=== PATIENT | female | born 1995 | race Caucasian/White ===

== ENCOUNTER 2023-01-15 11:28 | Outpatient (CLI) | payer BC, MEDICAID, SELFPAY | END 2023-01-15 11:29 | disposition home or self-care (01) | LOC: ANHSURGERY 11:35 | PROVIDERS: PCP Pediatrics; Visit Provider Surgery | DX: K42.9 Umbilical hernia without obstruction or gangrene (principal) | CPT/HCPCS: 36415; 86850; 86900; 86901 ==

== ENCOUNTER 2023-01-22 00:50 | Day surgery (SDC) | payer BC, MEDICAID, SELFPAY ==
[2023-01-13 13:41] VITALS: BMI 43.0
--- NOTE | 2023-01-13 13:48 | PC.NURSE ---
Report to the Outpatient Waiting Room, entrance under the green pavilion located off [facility], at time _0800_ on date _[id number]_. Planned Procedure Time: _1000_. Time changes happen often and if your time is changed the preop area will call you the afternoon before. - You and your visitor will be asked to self-screen and do not enter if you have any COVID symptoms. - A mask is optional within the hospital at this time. Patients may have clear liquids (water, carbonated beverages, clear teas, apple juice) until 3 hours prior to surgery with a maximum of 20 ounces. - No food from midnight until time of surgery Take the following medications with a SIP of water the morning of surgery: __Escitalopram, Topiramate DO NOT STOP ANY OF YOUR OTHER PRESCRIPTION MEDICATIONS PRIOR TO SURGERY ?EXCEPT THE FOLLOWING Medications to discontinue per physician __Vitamin D3, and Vitamin K37 Date to take last ywef__[id number] Please no make-up, nail uzbek, hairspray, perfume, deodorant, or body powder the day of surgery. No jewelry (including any body piercings) or valuables the day of surgery, leave them at home. Please take a shower or bath the night before, or the morning of, surgery with an antibacterial soap. Wear comfortable, loose fitting clothing. - Jewelry must be removed prior to entering the operating room. Rings and piercings that are not removed may be cut off. - The hospital will not accept responsibility for valuables. - Please leave all valuables, including medications, at home the day of surgery. If you are going home after surgery, a licensed package car driver must drive you home. - NO public transportation without another adult if you receive anesthesia. - We recommend that an adult stay with you for 24 hours following discharge. - We also recommend that you do not drive, make important decision, drink alcoholic beverages, or take any drugs that were not prescribed by your health care provider for at least 24 hours after your discharge time. Follow any additional instructions given to you from your surgeon. If you or anyone in your household have experienced Covid symptoms in the past week, please notify your surgeon or the nurse liaison at the phone number below for possible testing. Telephone instructions given to _Patient__and asked if any additional questions and then verbalized understanding. Patient advised to call surgeon office or pre surgery nurse liaison [phone] if any additional questions.
--- NOTE | 2023-01-21 11:58 | PM.SD2 ---
Same Day Admit/Disch: HPI History of Present Illness Chief complaint: Umb Hernia Narrative: Maggi Dumont is a 27 year old female who had C-sections each year 2017, 2018, 2019. She began noticing a bulge in her umbilicus during her last . This has been present ever since. Hernia has in recent months become tender and very painful with bending and with picking up her children. She has been losing weight by dieting since September. She has lost at least 30 lb. She was seen in the office and found to have an umbilical hernia. It was not able to be reduced although it was not acutely incarcerated. Size of the defect was not able to be estimated by exam. Estimating the size of the defect is 2 cm or less. Discussion was undertaken as to whether she would want to wait until she had lost more weight or proceed with umbilical hernia at the present time. She feels that the hernia is very symptomatic and would like to go ahead. She is taken to surgery now for laparoscopic robotic repair of umbilical hernia with mesh. 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 Gender identity (if verbalized by the patient): Female Spiritual care concerns: No Same Day Admit/Disch: Med Pre-admit Medications Home Medications Medication Instructions Recorded Confirmed Type cholecalciferol (vitamin D3) 125 125 mcg PO DAILY 11/30/22 01/13/23 History mcg (5,000 unit) capsule escitalopram oxalate 10 mg tablet 10 mg PO DAILY 11/30/22 01/13/23 History phentermine 15 mg capsule 15 mg PO DAILY 11/30/22 01/13/23 History topiramate 25 mg tablet (Topamax) 25 mg PO DAILY 11/30/22 01/13/23 History vitamin B12 500 mcg-folic acid 400 1 tablet PO DAILY 11/30/22 01/13/23 History mcg tablet ketorolac 10 mg tablet 10 mg PO Q6H 4 days #16 tabs 01/22/23 Rx oxycodone-acetaminophen 5 mg-325 1 - 2 tablet PO Q6H PRN pain #10 01/22/23 Rx mg tablet (Percocet) tabs Review of Systems Review of Systems All systems reviewed & are unremarkable except as noted in HPI and below (HPI and those items noted below) Constitutional Constitutional: Denies chills and Denies fever(s) Cardiovascular Cardiovascular: Denies chest pain, Denies diaphoresis, Denies dyspnea and Denies paroxysmal nocturnal dyspnea Respiratory Respiratory: Denies chest congestion, Denies cough and Denies dyspnea Integumentary/Breasts Skin/Breast: Denies lesions and Denies rash Exam Const: General: comfortable, no acute distress, alert and awake HENMT: Head: normocephalic and atraumatic Mouth: Yes Normal oral and palatal mucosa present Eyes: Conjunctivae: conjunctivae normal Pupils: Equal, round and reactive pupils present EOM: EOMs intact bilaterally Neck: Neck: normal visual inspection, no lymphadenopathy and nontender Resp: Effort & Inspection: normal respiratory effort Auscultation: clear to auscultation bilaterally Cardio: Rate: regular rate Rhythm: regular rhythm Heart sounds: no gallops, no murmurs and no rubs GI: Inspection: non-distended and visible herniation (Umbilical) GI Palp: Yes Soft to palpation, No Tenderness to palpation present (GI), No Hepatomegaly present, No Splenomegaly present and Yes Hernia present umbilical (Not able to
[2023-01-22] VITALS (8 sets, daily range): BP systolic 105–144; BP diastolic 54–88; PULSE 68–96; RESP 13–22; TEMP 36.2–36.4; O2SAT 92–100
[2023-01-22] MEDS: ACETAMINOPHEN 500 MG TABLET 1000 MG PO (09:10)
[2023-01-22] MEDS: SCOPOLAMINE 1.5 MG PATCH TRANSDERM (09:10)
--- NOTE | 2023-01-22 09:29 | WPDHPUPDATE1 ---
History and Physical Update Update Date/Time: 01/22/23 09:29 History and Physical has been reviewed, including an updated exam of the patient. There are NO changes in the patient's condition. Risks, benefits, and alternatives have been discussed and questions answered. Patient agrees to proceed with procedure.
--- NOTE | 2023-01-22 09:39 | P.PNAN_ITS ---
Anes - Initial Pre Proc Eval Procedure: Operation Date: 01/22/23 10:00 Proposed Procedures p Robotic Laparoscopic Repair Umbilical Hernia - Aly Beard MD Date/Time: 01/22/23 09:39 Surgeon: Aly Beard MD Pre Op Diagnosis: Umb Hernia Patient Data Age: 27 Gender: F Height: 1.63 m Weight: 113.6 kg Allergies Allergy/AdvReac Type Severity Reaction Status Date / Time amoxicillin [From Augmentin] Allergy Mild Diarrhea Verified 01/13/23 13:38 clavulanic acid Allergy Mild Diarrhea Verified 01/13/23 13:38 [From Augmentin] latex Allergy Mild Hives Verified 01/13/23 13:38 Home Medications Medication Instructions Recorded Confirmed Type cholecalciferol (vitamin D3) 125 125 mcg PO DAILY 11/30/22 01/13/23 History mcg (5,000 unit) capsule escitalopram oxalate 10 mg tablet 10 mg PO DAILY 11/30/22 01/13/23 History phentermine 15 mg capsule 15 mg PO DAILY 11/30/22 01/13/23 History topiramate 25 mg tablet (Topamax) 25 mg PO DAILY 11/30/22 01/13/23 History vitamin B12 500 mcg-folic acid 400 1 tablet PO DAILY 11/30/22 01/13/23 History mcg tablet Patient hx anesthesia problems: none Family hx anesthesia problems: none Results Review: All pre-operative results and documents have been reviewed as part of the pre- operative evaluation. 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 Informed Consent: The patient's anesthetic plan and its attendant risks and benefits were discussed with the patient/family/POA. Questions were solicited and answers provided to the satisfaction of the patient/family/POA.
[2023-01-22] MEDS: KETOROLAC 15 MG/ML VIAL (*BKC) IV PUSH (10:00)
[2023-01-22] MEDS: LACTATED RINGERS 1,000 ML 30 ML IV CONT ×2 (10:00→13:36)
[2023-01-22] MEDS: ceFAZolin 2 GM/D5W 50 ML 2 GM/50 ML BAG IVPB (10:57)
[2023-01-22] MEDS: BUPIVACAINE/EPINEPHRINE 0.5% 50 ML VIAL 30 ML INFILTRATE (11:41)
[2023-01-22] MEDS: fentaNYL CITRATE INJ (*CRX) 100 MCG/2 ML VIAL 25 MCG IV PUSH ×7 (13:22→14:37)
--- NOTE | 2023-01-22 13:27 | SUR.PHASEI ---
1327: Simple mask removed per patient request.
--- NOTE | 2023-01-22 13:29 | W.PM.PROC2 ---
Procedure Note - Detailed Date of Procedure 01/22/23 Pre-op Diagnosis Umb Hernia with 2 cm defect Post-op Diagnosis Same Procedure Performed Robotic laparoscopic repair of umbilical hernia with 2 cm defect with mesh Surgeon Aly Beard MD Personnel Research Scientist Anastasiia TORRES Anesthesia General and Local (0.5% Marcaine with epinephrine) Indications Patient is a 27-year-old woman who had 3 children by . Her last was born in 2019. She had an umbilical hernia after that . The hernia has not been bothersome until 2 or 3 months ago. It has been very uncomfortable for her with lifting or bending. She is in the process of losing weight in his lower ready lost over 30 lb. When we discussed waiting for additional weight loss, she is so symptomatic that she preferred to go ahead with the repair. She is taken to surgery now for robotic laparoscopic repair of the umbilical hernia with mesh. Findings Umbilical hernia with 2 cm defect Description of Procedure Patient is taken to surgery and induced into general anesthesia. The abdomen is prepped and draped. The initial incision was in the left subcostal position laterally. Local was infiltrated prior to placement of each of the incisions and trocars. In the initial incision, the varies needle was introduced into the abdominal cavity. Insufflation to adequate abdominal distension was carried out. A 5 mm applied Medical optical trocar was then used to place the initial trocar. I was able to see the umbilical hernia which had some omentum in the hernia defect. There were also some left lower quadrant adhesions. We placed the camera and retractor robotic 8 mm ports in the usual position. The 5 mm initial port was then switched out for an 8 mm robotic port under direct visualization. The robot was then brought into the field. The camera was docked and targeted. The 2 instrument ports were placed and positioned. The surgeon then went to the robotic console. Initially the adhesions in the left lower quadrant and suprapubic area were taken down. There was no bowel involved in these, only omentum. I then turned my attention to the umbilical hernia. It also had omentum chronically incarcerated in the hernia sac. I reduced the omentum. There was really no properitoneal fat or other tissues that would need dissection before the hernia could be closed and mesh placed. In 0 V lock suture was then introduced. The V lock was used to close the hernia defect. A 10 x [address] mesh was then introduced. The 0 V lock needle was then passed through the center of the mesh and the mesh was secured over the center of umbilical hernia repair with the V lock. I then used the V lock suture to tack the left side of the mesh to the anterior abdominal wall so that it would not preclude my visualization. Two 0 V lock was then introduced. Starting at the right lateral side, I sutured the mesh to the anterior abdominal wall with running suture of 2 0 V lock. We needed 3 of the 2 0 V lock to completely suture the entire circumference of the mesh. This went well and the mesh appeared to be in very good position on completion. I then ran the 0 V lock back across the midportion of the mesh to secure it to the anterior abdominal wall. This went well as well. We then removed all the needles that had been used. A final recheck of the mesh and hernia repair looked good again. The remaining instruments were removed and the robot was undocked. Trocars were removed. Wounds were closed with subcuticular 4-0 Monocryl skin suture. Wounds were dressed with Exofin surgical adhesive. Patient was awakened and taken to recovery in good condition. Implants 10 x [address] mesh Estimated Blood Loss -5.0 Drains No Packing No Pathology None sent Complications No immediate complications Condition Stable Disposition PACU [facility] Billing Surgery - Charge Forward: Surgery Billing (Robotic laparoscopic repair 2 cm umbil
[2023-01-22] MEDS: oxyCODONE HCL (*CRX) 5 MG TAB IR PO (14:29)
== END 2023-01-22 15:54 | disposition home or self-care (01) ==
PROVIDERS: PCP Pediatrics; Visit Provider Surgery
PROC: (CPT 49591; principal; 2023-01-22 10:00)
DX: K42.9 Umbilical hernia without obstruction or gangrene (principal); G40.909 Epilepsy, unspecified, not intractable, without status epilepticus; F41.9 Anxiety disorder, unspecified; F32.A Depression, unspecified; E66.01 Morbid (severe) obesity due to excess calories; Z68.41 Body mass index [BMI] 40.0-44.9, adult
CPT/HCPCS: 49591; S2900; A9270; C1781; J0330; J0690; J1100; J1170; J1885; J2250; J2405; J2704; J3010; J7120